=== PATIENT | female | born 1990 | race Caucasian/White ===

== ENCOUNTER 2018-06-05 01:38 | Emergency (ER) | payer BC ==
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
--- NOTE | 2018-06-06 13:47 | CT ---
EXAM DATE: 06/05/18 PATIENT'S AGE: 27 Patient: EM CORNEJO Facility: [place], [place] Site . Site : 1990 Study: CT Head [id number] 2:32:54 AM Ordering Physician: Mino Callahan Final Report: INDICATION: Trauma TECHNIQUE: CT head without contrast. COMPARISON: None FINDINGS: CSF spaces: Within normal limits for age. Brain parenchyma: The olivia-white differentiation is normal. No sign of mass, hemorrhage, or midline shift. Skull base and calvarium: Bilateral maxillary sinus mucosal thickening. . The visualized orbits are grossly unremarkable. No skull fractures. IMPRESSION: No evidence of acute intracranial trauma. Dictated by Eugene Benitez MD @ 06/05/2018 3:33:10 AM Dictated by: Eugene Benitez MD @ 06/05/2018 03:33:15 (Electronic Signature) Report Signed by Proxy. MTDD
== END 2018-06-05 03:45 | disposition home or self-care (01) ==
LOC: MW.ED 01:38
DX: S01.01XA Laceration without foreign body of scalp, initial encounter (principal); F17.210 Nicotine dependence, cigarettes, uncomplicated; W22.8XXA Striking against or struck by other objects, initial encounter; Y92.838 Other recreation area as the place of occurrence of the external cause
CPT/HCPCS: 70450; 70450-26; 99283-25

== ENCOUNTER 2018-06-10 14:50 | Emergency (ER) | payer BC | END 2018-06-10 15:10 | disposition left against medical advice (07) | LOC: MW.ED 14:50 | DX: Z53.21 Procedure and treatment not carried out due to patient leaving prior to being seen by health care provider (principal) ==

== ENCOUNTER 2021-11-20 07:21 | Emergency (ER) | payer SELFPAY ==
[2021-11-20] MEDS ORDERED: Ketorolac 30 MG/ML SDV IVPUSH ONE (07:46)
[2021-11-20] MEDS ORDERED: Albuterol/Ipratropium 3.0-0.5 MG/3 ML Neb Soln NEB ONE (08:31)
[2021-11-20 08:35] LABS: BLOOD UREA NITROGEN,BUN 4 mg/dL (7.0-18.0); CHLORIDE,CL 104 mmol/L (98-107); GLUCOSE RANDOM 102 mg/dL (74-106); POTASSIUM,K 3.3 mmol/L (3.5-5.1); SODIUM,NA 142 mmol/L (136-145)
[2021-11-20 08:43] LABS: CARBON DIOXIDE,CO2 24.3 mmol/L (21.0-32.0)
[2021-11-20] MEDS ORDERED: predniSONE 20 MG Tab PO ONE (09:07)
== END 2021-11-20 09:42 | disposition home or self-care (01) ==
LOC: MW.ED 07:21
DX: J45.901 Unspecified asthma with (acute) exacerbation (principal); Z20.822 Contact with and (suspected) exposure to COVID-19
CPT/HCPCS: 36415; 71045; 80048; 84484; 85025; 85379; 87635; 93005; 94640; 96374; 99285; A9270; J1885; J7620-GY; U0002

== ENCOUNTER 2022-06-16 13:47 | Emergency (ER) | payer BC ==
[2022-06-16 15:02] LABS: CARBON DIOXIDE,CO2 25.8 mmol/L (21.0-32.0); POTASSIUM,K 3.8 mmol/L (3.5-5.1)
== END 2022-06-16 16:46 | disposition home or self-care (01) ==
LOC: MW.ED 13:47
DX: R20.2 Paresthesia of skin (principal)
CPT/HCPCS: 36415; 70450; 70450-26; 80053; 84703; 85025; 85652; 86140; 99284

== ENCOUNTER 2023-05-03 11:22 | Emergency (ER) | payer BC ==
[2023-05-03] MEDS ORDERED: Morphine 4 MG/ML Syringe IVPUSH ONE (11:35)
[2023-05-03] MEDS ORDERED: Sodium Chloride 0.9% 1,000 ML IV ONE (11:35)
[2023-05-03] MEDS ORDERED: Sodium Chloride 0.9% 2.5 ML Syringe FLUSH PRN (11:35)
[2023-05-03] MEDS ORDERED: Ondansetron 4 MG/2 ML SDV IVPUSH ONE (11:35)
[2023-05-03] MEDS ORDERED: Naloxone 0.4 MG/ML SDV IVPUSH PRN (11:35)
[2023-05-03] MEDS ORDERED: Sodium Chloride 0.9% 10 ML Syringe FLUSH PRN (11:35)
[2023-05-03 12:15] LABS: BASOPHILS PERCENT AUTO 0.3 % (0.0-1.5); EOSINOPHILS ABSOLUTE AUTO 0.2 K/uL (0.0-0.7); EOSINOPHILS PERCENT AUTO 3.4 % (0.0-7.0); HEMOGLOBIN 13.3 g/dL (12.0-16.0); LYMPHOCYTES ABSOLUTE AUTO 1.6 K/uL (0.6-2.4); LYMPHOCYTES PERCENT AUTO 26.7 % (16.0-40.0); MEAN CORPUSCULAR HEMOGLOBIN 30.1 pg (27.0-32.0); MEAN CORPUSCULAR HGB CONC 33.3 g/dL (31.0-37.0); MEAN CORPUSCULAR VOLUME 90.5 fL (80.0-98.0); MONOCYTES ABSOLUTE AUTO 0.5 K/uL (0.0-0.8); MONOCYTES PERCENT AUTO 8.3 % (0.0-15.0); NEUTROPHILS ABSOLUTE AUTO 3.8 K/uL (1.4-5.7); NEUTROPHILS PERCENT AUTO 61.3 % (48.0-80.0); NRBC ABSOLUTE 0 K/uL; PLATELET COUNT,PLT 150 K/uL (150-400); RED BLOOD CELL COUNT 4.42 M/uL (4.30-5.90); WHITE BLOOD CELL COUNT,WBC 6.14 K/uL (4.0-11.0)
[2023-05-03 12:43] LABS: A/G RATIO 1.2 (0.9-1.6); ALANINE AMINOTRANSFERASE,ALT 42 IU/L (14-63); ALBUMIN 3.8 g/dL (3.4-5.0); ALKALINE PHOSPHATASE 49 U/L (46-116); ASPARTATE AMNIOTRANSFERASE,AST 40 IU/L (15-37); BILIRUBIN TOTAL 0.7 mg/dL (0.2-1.0); BLOOD UREA NITROGEN,BUN 11 mg/dL (7.0-18.0); CALCIUM 8.6 mg/dL (8.5-10.1); CARBON DIOXIDE,CO2 25.4 mmol/L (21.0-32.0); CHLORIDE,CL 106 mmol/L (98-107); CREATININE 0.8 mg/dL (0.6-1.0); EST CRCL DRUG DOSING (CG) 105.51 mL/min; GLUCOSE RANDOM 93 mg/dL (74-106); LIPASE 110 U/L (73-393); POTASSIUM,K 4.2 mmol/L (3.5-5.1); SODIUM,NA 141 mmol/L (136-145)
[2023-05-03 12:49] LABS: ESTIMATED GFR 100 mL/min (>60)
== END 2023-05-03 15:04 | disposition home or self-care (01) ==
LOC: MW.ED 11:22
DX: S70.01XA Contusion of right hip, initial encounter (principal); S20.211A Contusion of right front wall of thorax, initial encounter; J45.909 Unspecified asthma, uncomplicated; Z79.51 Long term (current) use of inhaled steroids; Z91.410 Personal history of adult physical and sexual abuse; Y04.0XXA Assault by unarmed brawl or fight, initial encounter
CPT/HCPCS: 36415; 70450; 70486; 71046; 71100; 72125; 73502; 80053; 83690; 84484; 84703; 85025; 93005; 96374; 96375; 99284; J2270; J2405; J3490; J7030; 93010